=== PATIENT | female | born 1995 | race American Indian/Alaskan Native ===

== ENCOUNTER 2021-06-14 12:40 | Emergency (ER) | payer SELFPAY ==
[2021-06-14 16:59] LABS: Basophils # (Auto) 0.1 K/mm3 (0.0-0.1); Basophils % (Auto) 0.9 % (0.0-1.8); Eosinophils # (Auto) 0.1 K/mm3 (0.0-0.4); Eosinophils % (Auto) 1.2 % (0.0-4.3); Hematocrit 42.2 % (30.3-42.9); Hemoglobin 14.2 gm/dl (10.1-14.3); Lymphocytes # (Auto) 1.8 K/mm3 (1.2-5.4); Lymphocytes % (Auto) 19.4 % (13.4-35.0); Mean Corpuscular HGB Conc 34 % (30-34); Mean Corpuscular Volume 88 fl (79-97); Monocytes # (Auto) 0.5 K/mm3 (0.0-0.8); Monocytes % (Auto) 5.1 % (0.0-7.3); Platelet Count 334 K/mm3 (140-440); Red Blood Count 4.77 M/mm3 (3.65-5.03); Red Cell Distribution Width 13.4 % (13.2-15.2)
[2021-06-14 17:10] LABS: Bilirubin,Urine NEG (Negative); Blood,Urine MOD (Negative); Color,Urine Yellow (Yellow); Mucus,Urine 1+ /HPF; Protein,Urine <15 mg/dL mg/dL (Negative)
[2021-06-14 17:22] LABS: Alanine Aminotransferase 11 units/L (7-56); Blood Urea Nitrogen 9 mg/dL (7-17); Calcium 8.8 mg/dL (8.4-10.2); Hemolysis Index 7
[2021-06-14 17:25] LABS: BUN/Creatinine Ratio 15
--- NOTE | 2021-06-14 18:08 | Ultrasound Report ---
ULTRASOUND PELVIS INDICATION: , cramping, bleeding. TECHNIQUE: Transabdominal and Transvaginal. Duplex Color Doppler used: Yes. COMPARISON: None available FINDINGS: Uterus: Present. Size: 9.4 x 4.9 x 6.2 cm. Endometrial complex: Normal measuring 1.1 cm. Mass lesions: None. Additional findings: None. Right Ovary -- 4.3 x 2.3 x 4 CM Blood flow: Normal. Cyst or mass: Complex lesion with cystic center measuring 2.2 cm. No pole or yolk sac. Left Ovary-- 3.9 x 1.7 x 3 cm Blood flow: Normal. Cyst or mass: None. Urinary Bladder: Normal. Free Fluid: Mild. Additional Findings: None. IMPRESSION: 1. No intrauterine . Endometrial stripe is thickened. 2. Complex lesion right ovary is favored to be a corpus luteum cyst over early ectopic. Recommend cor relation with hCG levels. 3. Mild pelvic free fluid. Signer Name: Aleksander Mejia MD Signed: 06/14/2021 6:04 PM Workstation Name: [id number]
--- NOTE | 2021-06-14 18:13 | Emergency Department Report ---
ED General Adult HPI - General Chief complaint: Vaginal Bleeding Stated complaint: 5 WKS /BLEEDING HEAVY Time Seen by Provider: 06/14/21 16:19 Source: patient Mode of arrival: Ambulatory Limitations: No Limitations - History of Present Illness Initial comments: Patient is a 26-year-old female presents emergency room with complaints of vaginal bleeding that began last night. She reports that she has changed her pad approximately 3 times since last night. She has some mild lower back discomfort. She denies any abdominal pain. She denies any fever, chills, nausea, vomiting, diarrhea, dysuria, vaginal discharge. She states her last menstrual cycle was April 24, 2021. She states that she did go to a clinic and states that she had a positive urine test and states that she did have ultrasound performed but it did not show anything at that time and that was approximately 2 weeks ago. She reports that this is her first . She denies any medication allergies. - Related Data Allergies Allergy/AdvReac Type Severity Reaction Status Date / Time No Known Allergies Allergy Verified 06/14/21 15:00 ED Review of Systems ROS: Stated complaint: 5 WKS /BLEEDING HEAVY Other details as noted in HPI Comment: All other systems reviewed and negative ED Past Medical Hx - Past Medical History Previous Medical History?: No ED Physical Exam - General Limitations: No Limitations General appearance: alert, in no apparent distress - Head Head exam: Present: atraumatic, normocephalic - Eye Eye exam: Present: normal appearance - ENT ENT exam: Present: mucous membranes moist - Respiratory Respiratory exam: Present: normal lung sounds bilaterally. Absent: respiratory distress, wheezes, rales, rhonchi, stridor, chest wall tenderness, accessory muscle use, decreased breath sounds, prolonged expiratory - Cardiovascular Cardiovascular Exam: Present: regular rate, normal rhythm, normal heart sounds. Absent: systolic murmur, diastolic murmur, rubs, gallop - GI/Abdominal GI/Abdominal exam: Present: soft, normal bowel sounds. Absent: distended, tenderness, guarding, rebound, rigid - Neurological Exam Neurological exam: Present: alert, oriented X3 - Psychiatric Psychiatric exam: Present: normal affect, normal mood - Skin Skin exam: Present: warm, dry, intact ED Course Vital Signs 06/14/21 06/14/21 14:56 18:21 Temperature 98.0 F 98.4 F Pulse Rate 61 72 Respiratory 18 16 Rate Blood Pressure 130/69 Blood Pressure 118/70 [Right] O2 Sat by Pulse 100 99 Oximetry ED Medical Decision Making - Lab Data Result diagrams: 06/14/21 16:28 06/14/21 16:28 Lab Results 06/14/21 06/14/21 06/14/21 Range/Units 16:28 16:28 16:28 WBC 9.1 (4.5-11.0) K/mm3 RBC 4.77 (3.65-5.03) M/mm3 Hgb 14.2 (10.1-14.3) gm/dl Hct 42.2 (30.3-42.9) % MCV 88 (79-97) fl MCH 30 (28-32) pg MCHC 34 (30-34) % RDW 13.4 (13.2-15.2) % Plt Count 334 (140-440) K/mm3 Lymph % (Auto) 19.4 (13.4-35.0) % [place] % (Auto) 5.1 (0.0-7.3) % Eos % (Auto) 1.2 (0.0-4.3) % Baso % (Auto) 0.9 (0.0-1.8) % Lymph # (Auto) 1.8 (1.2-5.4) K/mm3 [place] # (Auto) 0.5 (0.0-0.8) K/mm3 Eos # (Auto) 0.1 (0.0-0.4) K/mm3 Baso # (Auto) 0.1 (0.0-0.1) K/mm3 Seg Neutrophils % 73.4 H (40.0-70.0) % Seg Neutrophils # 6.7 (1.8-7.7) K/mm3 Sodium 139 (137-145) mmol/L Potassium 3.8 (3.6-5.0) mmol/L Chloride 104.4 (98-107) mmol/L Carbon Dioxide 23 (22-30) mmol/L Anion Gap 15 mmol/L BUN 9 (7-17) mg/dL Creatinine 0.6 (0.6-1.2) mg/dL Estimated GFR > 60 ml/min BUN/Creatinine Ratio 15 % Glucose 119 H (65-100) mg/dL Calcium 8.8 (8.4-10.2) mg/dL Total Bilirubin 0.40 (0.1-1.2) mg/dL AST 13 (5-40) units/L ALT 11 (7-56) units/L Alkaline Phosphatase 74 (35-129) units/L Total Protein 7.3 (6.3-8.2) g/dL Albumin 4.0 (3.9-5) g/dL Albumin/Globulin Ratio 1.2 % HCG, Quant 109.6 H (0-4) mIU/mL Urine Color (Yellow) Urine Turbidity (Clear) Urine pH (5.0-7.0) Ur Specific [place] (1.003-1.030) Urine Protein (Negative) mg/dL Urine Glucose (UA) (Negative) mg/dL Urine Ketones (Negative) mg/dL Urine Blood (Negative) Urine Nitrite (Negative) Urine Bilirubin (Negative) Urine Urobilinogen (<2.0) mg/dL Ur Leukocyte Esterase (Negative) Urine WBC (Auto) (0.0-6.0) /HPF Urine RBC (Auto) (0.0-6.0) /HPF U Epithel Cells (Auto) (0-13.0) /HPF Urine Mucus /HPF Blood Type 06/14/21 06/14/21 Range/Units 16:28 Unknown WBC (4.5-11.0) K/mm3 RBC (3.65-5.03) M/mm3 Hgb (10.1-14.3) gm/dl Hct (30.3-42.9) % MCV (79-97) fl MCH (28-32) pg MCHC (30-34) % RDW (13.2-15.2) % Plt Count (140-440) K/mm3 Lymph % (Auto) (13.4-35.0) % [place] % (Auto) (0.0-7.3) % Eos % (Auto) (0.0-4.3) % Baso % (Auto) (0.0-1.8) % Lymph # (Auto) (1.2-5.4) K/mm3 [place] # (Auto) (0.0-0.8) K/mm3 Eos # (Auto) (0.0-0.4) K/mm3 Baso # (Auto) (0.0-0.1) K/mm3 Seg Neutrophils % (40.0-70.0) % Seg Neutrophils # (1.8-7.7) K/mm3 Sodium (137-145) mmol/L Potassium (3.6-5.0) mmol/L Chloride (98-107) mmol/L Carbon Dioxide (22-30) mmol/L Anion Gap mmol/L BUN (7-17) mg/dL Creatinine (0.6-1.2) mg/dL Estimated GFR ml/min BUN/Creatinine Ratio % Glucose (65-100) mg/dL Calcium (8.4-10.2) mg/dL Total Bilirubin (0.1-1.2) mg/dL AST (5-40) units/L ALT (7-56) units/L Alkaline Phosphatase (35-129) units/L Total Protein (6.3-8.2) g/dL Albumin (3.9-5) g/dL Albumin/Globulin Ratio % HCG, Quant (0-4) mIU/mL Urine Color Yellow (Yellow) Urine Turbidity Clear (Clear) Urine pH 7.0 (5.0-7.0) Ur Specific [place] 1.019 (1.003-1.030) Urine Protein <15 mg/dl (Negative) mg/dL Urine Glucose (UA) Neg (Negative) mg/dL Urine Ketones Tr (Negative) mg/dL Urine Blood Mod (Negative) Urine Nitrite Neg (Negative) Urine Bilirubin Neg (Negative) Urine Urobilinogen 2.0 (<2.0) mg/dL Ur Leukocyte Esterase Neg (Negative) Urine WBC (Auto) 3.0 (0.0-6.0) /HPF Urine RBC (Auto) 2.0 (0.0-6.0) /HPF U Epithel Cells (Auto) 6.0 (0-13.0) /HPF Urine Mucus 1+ /HPF Blood Type B POSITIVE - Radiology Data Radiology results: report reviewed Ordering Physician: DURGA PORTILLO Date of Service: 06/14/21 Procedure(s): US OB transvaginal Accession Number(s): [id number] cc: DURGA PORTILLO ULTRASOUND PELVIS INDICATION: , cramping, bleeding. TECHNIQUE: Transabdominal and Transvaginal. Duplex Color Doppler used: Yes. COMPARISON: None available FINDINGS: Uterus: Present. Size: 9.4 x 4.9 x 6.2 cm. Endometrial complex: Normal measuring 1.1 cm. Mass lesions: None. Additional findings: None. Right Ovary -- 4.3 x 2.3 x 4 CM Blood flow: Normal. Cyst or mass: Complex lesion with cystic center measuring 2.2 cm. No pole or yolk sac. Left Ovary-- 3.9 x 1.7 x 3 cm Blood flow: Normal. Cyst or mass: None. Urinary Bladder: Normal. Free Fluid: Mild. Additional Findings: None. IMPRESSION: 1. No intrauterine . Endometrial stripe is thickened. 2. Complex lesion right ovary is favored to be a corpus luteum cyst over early ectopic. Recommend correlation with hCG levels. 3. Mild pelvic free fluid. Signer Name: Aleksander Mejia MD Signed: 06/14/2021 6:04 PM Workstation Name: [id number] Transcribed By: JEFF Dictated By: Aleksander Mejia MD Electronically Authenticated By: Aleksander Mejia MD Signed Date/Time: 06/14/211803 DD/ 00 TD/TT: - Medical Decision Making Patient is a 26-year-old female presents emergency room with complaints of vaginal bleeding that began last night. She reports that she has changed her pad approximately 3 times since last night. She has some mild lower back discomfort. She denies any abdominal pain. She denies any fever, chills, nausea, vomiting, diarrhea, dysuria, vaginal discharge. She states her last menstrual cycle was April 24, 2021. She states that she did go to a clinic and states that she had a positive urine test and states that she did have ultrasound performed but it did not show anything at that time and that was approximately 2 weeks ago. She reports that this is her first . She denies any medication allergies. Vitals are normal. No abdominal tenderness on exam. H&H is normal. hCG quant is 109. UA without evidence of UTI or blood. OB ultrasound 1. No intrauterine . Endometrial stripe is thickened. 2. Complex lesion right ovary is favored to be a corpus luteum cyst over early ectopic. Recommend correlation with hCG levels. 3. Mild pelvic free fluid. I believe this likely represents spontaneous , I discussed possibility of early ectopic with patient and the need for serial hCGs. Discussed return precautions. Advised patient May take Tylenol as needed for any discomfort. Increase your fluid intake. Practice pelvic rest. Follow-up with [facility]. Follow-up with your primary care doctor. You need to have a repeat hCG quant in 2 to 3 days, if you are unable to follow-up with OB may return to the emergency room to have this performed. Return to emergency room for any new or worsening symptoms. Critical care attestation.: If time is entered above; I have spent that time in minutes in the direct care of this critically ill patient, excluding procedure time. ED Disposition Clinical Impression: Threatened miscarriage Disposition: HOME / SELF CARE / HOMELESS Is pt being admited?: No Does the pt Need Aspirin: No Condition: Stable Instructions: Threatened Miscarriage Additional Instructions: May take Tylenol as needed for any discomfort. Increase your fluid intake. Practice pelvic rest. Follow-up with [facility]. Follow-up with your primary care doctor. You need to have a repeat hCG quant in 2 to 3 days, if you are unable to follow-up with OB may return to the emergency room to have this performed. Return to emergency room for any new or worsening symptoms. Referrals: CECILIA SABILLON MD [Primary Care Provider] - 2-3 Days JOSE MANUEL ANGELES MD [Staff Physician] - 2-3 Days Time of Disposition: 18:12 Print Language: UG[place]
[2021-06-14 18:22] VITALS: BP 118/70
== END 2021-06-14 18:22 | disposition home or self-care (01) ==
LOC: ED 12:40
DX: O20.0 Threatened abortion (principal); Z3A.01 Less than 8 weeks gestation of pregnancy
CPT/HCPCS: 36415; 76801; 76817; 80053; 81001; 84702; 85025; 86900; 86901; 99284

== ENCOUNTER 2021-10-28 22:23 | Emergency (ER) | payer SELFPAY ==
[2021-10-28] MEDS ORDERED: IBUPROFEN 600 MG TAB PO ONE (22:50)
[2021-10-29] MEDS ORDERED: METOCLOPRAMIDE 10 MG/2 ML INJ IV ONE (01:27)
[2021-10-29] MEDS ORDERED: SODIUM CHLORIDE 0.9% 1000 ML 2,000 ML IV ONE (01:27)
[2021-10-29] MEDS ORDERED: ACETAMINOPHEN 500 MG TAB PO ONE (01:27)
[2021-10-29] MEDS ORDERED: diphenhydrAMINE 50 MG/ML VIAL IV ONE (01:27)
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
[2021-10-29 01:55] LABS: Basophils % (Auto) 0.5 % (0.0-1.8); Hemoglobin 13.8 gm/dl (10.1-14.3); Lymphocytes # (Auto) 0.6 K/mm3 (1.2-5.4); Lymphocytes % (Auto) 7.2 % (13.4-35.0); Mean Corpuscular HGB Conc 33 % (30-34); Mean Corpuscular Volume 89 fl (79-97); Monocytes # (Auto) 0.4 K/mm3 (0.0-0.8); Monocytes % (Auto) 5.2 % (0.0-7.3); Platelet Count 299 K/mm3 (140-440); Red Blood Count 4.72 M/mm3 (3.65-5.03); Red Cell Distribution Width 12.9 % (13.2-15.2)
[2021-10-29 02:09] LABS: Alanine Aminotransferase 15 units/L (7-56); Albumin 4.2 g/dL (3.9-5); Blood Urea Nitrogen 10 mg/dL (7-17); Hemolysis Index 4
--- NOTE | 2021-10-29 02:09 | Cat Scan Report ---
CT HEAD WITHOUT CONTRAST INDICATION / CLINICAL INFORMATION: Loss of consciousness over the weekend, thinks she. TECHNIQUE: All CT scans at this location are performed using CT dose reduction for ALARA by means of automated e xposure control. COMPARISON: None available. FINDINGS: No acute intracranial hemorrhage. Ventricles are normal in size without midline shift or mass effect. No extra-axial fluid collection is seen. Sinuses are clear ADDITIONAL FINDINGS: None. IMPRESSION: 1. No acute intracranial abnormality. Signer Name: Nigel Catalan MD Signed: 10/29/2021 2:05 AM Workstation Name: [id number]
[2021-10-29 02:16] LABS: BUN/Creatinine Ratio 17
--- NOTE | 2021-10-29 02:39 | XRay Report ---
CHEST 2 VIEWS INDICATION / CLINICAL INFORMATION: Chest tightness with fever. COMPARISON: None available. FINDINGS: SUPPORT DEVICES: None. HEART / MEDIASTINUM: No significant abnormality. LUNGS / PLEURA: No significant pulmonary or pleural abnormality. No pneumothorax. ADDITIONAL FINDINGS: No significant additional findings. IMPRESSION: 1. No acute findings. Signer Name: Nigel Catalan MD Signed: 10/29/2021 2:35 AM Workstation Name: [email or web address]
[2021-10-29] MEDS ORDERED: POTASSIUM CHLORIDE ER 20 MEQ TAB PO ONE (02:55)
[2021-10-29 04:32] VITALS: BP 125/71
[2021-10-29 04:52] LABS: Color,Urine Colorless (Yellow)
[2021-10-29 04:58] LABS: WBC,Urine < 1.0 /HPF (0.0-6.0)
[2021-10-29 05:00] LABS: Amphetamine Screen,Urine Negative; Benzodiazepines Screen,Urine Negative; Cannabinoid Screen,Urine Negative; Cocaine Screen,Urine Negative; Methadone Screen,Urine Negative; Opiate Screen,Urine Negative
--- NOTE | 2021-10-29 22:40 | Electrocardiograph Report ---
[facility] Test Date: 2021-10-28 Test Time: 22:45:50 Pat Name: LEROY POPE Department: Room: Gender: F [employer] Technician: SYED : 1995 Requested By: VENTURA TALBERT Order Number: [id number] Reading MD: Haley Perea Measurements Intervals [place] Rate: 109 P: 39 MO: 160 QRS: 14 QRSD: 99 T: 0 QT: 319 QTc: 429 Interpretive Statements Sinus tachycardia Probable left atrial enlargement No previous ECG available for comparison Electronically Signed On 10-29-2021 22:40:01 EDT by Haley Perea
--- NOTE | 2021-10-29 22:44 | Electrocardiograph Report ---
[facility] Test Date: 2021-10-29 Test Time: 01:41:22 Pat Name: LEROY POPE Department: Room: Gender: F [employer]ship: [id number] : 1995 Requested By: VENTURA TALBERT Order Number: [id number] Reading MD: Haley Perea Measurements Intervals [place] Rate: 78 P: 51 IN: 160 QRS: 3 QRSD: 108 T: 2 QT: 373 QTc: 425 Interpretive Statements Sinus rhythm Probable left atrial enlargement Compared to ECG 10/28/2021 22:45:50 Sinus tachycardia no longer present Electronically Signed On 10-29-2021 22:43:42 EDT by Haley Perea
== END 2021-10-29 06:05 | disposition still patient (30) ==
LOC: ED 22:23
DX: R07.9 Chest pain, unspecified (principal); R51.9 Headache, unspecified; Z20.822 Contact with and (suspected) exposure to COVID-19; E87.6 Hypokalemia; Z79.899 Other long term (current) drug therapy
CPT/HCPCS: 36415; 70450; 71046; 80053; 80307; 81001; 82550; 83735; 84484; 84702; 85025; 85610; 87116; 87430; 87502; 93005; 96361; 96374; 96375; 99284; J1200; J2765; J7030